=== PATIENT | male | born 1965 | race Caucasian/White ===

== ENCOUNTER 2023-11-14 12:02 | Emergency (ER) | payer BC, SELFPAY ==
--- NOTE | ~2023-11-14 | XR_ITS ---
EXAMINATION: XR chest 2V DATE: 11/14/2023 12:32 INDICATION: Chest tightness TECHNIQUE: PA and lateral views of the chest are obtained. COMPARISON: None available FINDINGS: The lungs are free of acute opacities. No pleural effusion or pneumothorax. The cardiomedia stinal silhouette is normal. There is mild thoracic spondylosis. IMPRESSION: 1. No acute cardiopulmonary abnormality. Reviewed, dictated and finalized at location B. [facility]
[2023-11-14 12:07] VITALS: BP 186/96; PULSE 72; RESP 18; TEMP 36.4; O2SAT 100
--- NOTE | 2023-11-14 12:12 | ECG_ITS ---
Measurements Intervals [place] Rate: 66 P: 58 OR: 133 QRS: 1 QRSD: 94 T: 43 QT: 368 QTc: 387 Interpretive Statements SINUS RHYTHM WITH FREQUENT VENTRICULAR PREMATURE COMPLEXES ABNORMAL RHYTHM ECG NO PREVIOUS ECG AVAILABLE FOR COMPARISON Electronically Signed On 11-14-2023 15:38:43 [employer] by Ravin Harkins M.D.
--- NOTE | 2023-11-14 12:12 | PC.NURSE ---
Pt placed in waiting room and now complaining of chest tightness. CP PG initiated
[2023-11-14 12:36] LABS: Basophils Absolute Auto 0.1 K/mm3 (0.0-0.1); Eosinophils Absolute Auto 0.1 K/mm3 (0-0.3); Eosinophils Percent Auto 1.1 % (0-4.4); Hematocrit 45.4 % (42.0-52.0); Hemoglobin 15.7 g/dL (14.0-18.0); Immature Granulocyte Absolute 0.01 K/mm3 (0.00-0.031); Immature Granulocyte Percent A 0.1 % (0-0.5); Lymphocytes Absolute Auto 1.85 K/mm3 (0.9-3.2); Lymphocytes Percent Auto 25.6 % (18.3-44.2); Mean Corpuscular HGB Conc 34.6 g/dl (32-36); Mean Corpuscular Hemoglobin 30.5 pg (26-34); Mean Corpuscular Volume 88.2 fl (80-100); Mean Platelet Volume 9.9 fl (7.4-10.4); Monocytes Absolute Auto 0.5 K/mm3 (0.1-0.6); Monocytes Percent Auto 7.1 % (2.6-8.5); Neutrophils Absolute Auto 4.7 K/mm3 (1.3-6.7); Neutrophils Percent Auto 65.1 % (45.5-73.1); Platelet Count Result 301 k/mm3 (150-375); Red Blood Count 5.15 M/mm3 (4.6-6.20); Red Cell Distribution Width 12.3 % (11.5-14.5); White Blood Count 7.2 K/mm3 (4.5-10.0)
[2023-11-14 12:39] VITALS: BP 161/95; PULSE 63; RESP 13; O2SAT 99
[2023-11-14 12:44] LABS: INR 0.9
[2023-11-14 12:45] LABS: Partial Thromboplastin Time 24.4 SECONDS (22.3-36.8)
[2023-11-14 12:48] LABS: Alanine Aminotransferase 42 U/L (6-50); Albumin Level 4.8 g/dL (3.5-5.1); Alkaline Phosphatase 85 U/L (38-126); Anion Gap 9 mmol/L (8-16); Aspartate Amino Transferase 41 U/L (17-59); Bilirubin,Total 0.6 mg/dL (0.2-1.3); Blood Urea Nitrogen 18 mg/dL (9-20); Calcium 9.7 mg/dL (8.4-10.2); Carbon Dioxide 26 mmol/L (22-30); Chloride 105 mmol/L (98-107); Estimated CRCL calculation 76 ml/min; Estimated Glomerular Filt Rate > 60; Glucose 112 mg/dL (65-110); Lipase 106 U/L (23-300); Potassium 4.3 mmol/L (3.4-5.0); Sodium 140 mmol/L (137-145)
[2023-11-14] MEDS: ASPIRIN 81 MG CHEWABLE TABLET 324 MG PO (13:00)
[2023-11-14 13:04] LABS: Troponin I < 0.012 ng/mL (0.000-0.034)
[2023-11-14 14:13] VITALS: BP 123/87; PULSE 67; RESP 13; O2SAT 98
--- NOTE | 2023-11-14 15:10 | ED.RECABL ---
HPI - Recheck/Abnormal Lab/Rx General Chief Complaint: Recheck/Abnormal Lab/Rx Stated Complaint: high blood pressure Time Seen by Provider: 11/14/23 12:58 Source: patient Limitations: no limitations History of Present Illness HPI narrative: Patient is a 57-year-old male presents to the emergency department complaining of high blood pressure. Patient states he has been taking his blood pressure with a past couple days and been reading high prompting and come in for further evaluation. Patient notes he has been taking his medications as prescribed without any recent changes. Patient is not following the aha guidelines for obtaining blood pressure readings and has been feeling anxious about this and when to recheck his blood pressure is higher. Patient admits to having follow-up with his primary care physician coming up. Patient denies chest pain, difficulty breathing, hematuria, headache, vision changes, nausea, vomiting, numbness, weakness. Related Data Allergies Allergy/AdvReac Type Severity Reaction Status Date / Time Penicillins Allergy Unknown hives Verified 11/14/23 12:39 Review of Systems Review of Systems: A 10 system review of systems was completed on the patient and is negative except for what is stated in the HPI. Nursing and ancillary documentation was reviewed. [facility] Past Medical History Medical History Essential (primary) hypertension Social History Social History Smoking packs per day: 1 Smoking cigarettes per day: 20.0 Smoking status: Former smoker Tobacco type: cigarettes Alcohol intake: current Drinks per week: 14 Substance use: never Substance use type: does not use Comments At time of signature, I have reviewed and agree with nursing past medical, surgical, social and family history unless otherwise noted. Please see the nursing chart for further information. There is no relevant family history pertinent to the presenting complaint. Exam Narrative: CONST: No acute distress. Well nourished. HENMT: Head is normocephalic and atraumatic. Moist mucous membranes. No posterior oropharynx erythema. EYES: No conjunctival icterus, injection, or pallor. PERRL. NECK: No meningeal signs. RESP: Able to speak in full sentences. Normal respiratory effort. CTAB. CARDIO: Regular rate. Regular rhythm. 2+ DP and radial pulses bilaterally. GI: Nondistended. No tenderness to palpation. Soft. : No CVA tenderness to palpation. SKIN: No rashes or lesions noted on exposed skin. NEURO: Oriented x3. Moves all extremities. EXTREM/MSK/BACK: No pedal edema. PSYCH: Normal affect. Course Vital Signs Vital signs: Vital Signs Temperature 97.6 F 11/14/23 12:07 Pulse Rate 72 11/14/23 12:07 Respiratory Rate 18 11/14/23 12:07 Blood Pressure 186/96 H 11/14/23 12:07 Pulse Oximetry 100 11/14/23 12:07 Temperature 97.6 F 11/14/23 12:07 Pulse Rate 67 11/14/23 14:13 Respiratory Rate 13 11/14/23 14:13 Blood Pressure 123/87 11/14/23 14:13 Pulse Oximetry 98 11/14/23 14:13 MDM - Recheck/Abnormal Lab/Rx MDM Narrative Medical decision making narrative: Patient presents with the above complaint. Initial vitals are remarkable for no significant abnormalities. Physical examination as noted above. Plan discussed: laboratory analysis, EKG, chest x-ray. Patient was reassessed at the bedside. No changes in physical exam. Patient is in no acute distress. The patient has remained stable throughout the entire ED visit. Blood pressure readings are much improved while patient is resting and relaxing with no one in the room. Counseled patient regarding diagnostic results and potential diagnosis. Anticipatory guidance provided. patient provided with a chain guidelines for blood pressure reading at home. Patient instructed to follow up with PCP within 1 week. Rudy
[2023-11-14 15:24] VITALS: BP 130/92; PULSE 66; RESP 16; TEMP 36.3; O2SAT 98
== END 2023-11-14 15:26 | disposition home or self-care (01) ==
PROVIDERS: Emergency Medicine; Emergency Provider Student in an Organized Health Care Education/Training Program; PCP Nurse Practitioner Family
DX: I10 Essential (primary) hypertension (principal); Z87.891 Personal history of nicotine dependence; R94.31 Abnormal electrocardiogram [ECG] [EKG]
CPT/HCPCS: 36415; 71046; 80053; 83690; 84484; 85025; 85610; 85730; 93005; 99284; A9270

== ENCOUNTER 2024-03-17 00:24 | Day surgery (SDC) | payer BC, SELFPAY ==
[2024-03-02 13:47] VITALS: BMI 27.9
[2024-03-17 10:54] VITALS: BP 126/89; PULSE 56; RESP 16; TEMP 36.1; O2SAT 98
[2024-03-17] MEDS: LACTATED RINGERS 1,000 ML 150 ML IV CONT (11:00)
--- NOTE | 2024-03-17 12:14 | PM.HPGS ---
History of Present Illness History of Present Illness Consent: Risks, benefits, and alternatives have been discussed and questions answered. Patient agrees to proceed with procedure. Chief complaint: GERD without esophagitis Narrative: José Antonio Carpenter is a 58 year old male here for first EGD, h/o GERD on omeprazole Review of Systems Review of Systems: All systems reviewed & are unremarkable except as noted in HPI and below PMFSH Past Medical History Medical History Essential (primary) hypertension Social History Social History Smoking packs per day: 1 Smoking cigarettes per day: 20.0 Smoking status: Former smoker Tobacco type: cigarettes Alcohol intake: current Drinks per week: 10 Substance use: never Substance use type: does not use Spiritual care concerns: No Meds Home Medications and Allergies Home Medications Medication Instructions Recorded Confirmed Type rosuvastatin 10 mg tablet See Rx Instructions .Route 10/21/23 03/02/24 Rx .COMPLEX #90 tabs ramipril 10 mg capsule See Rx Instructions .Route 12/04/23 03/02/24 Rx .COMPLEX #180 caps omeprazole 20 mg capsule,delayed 20 mg PO DAILY #90 caps 01/12/24 03/02/24 Rx release hydrochlorothiazide 25 mg tablet 25 mg PO DAILY #90 tabs 01/28/24 03/02/24 Rx Allergies Allergy/AdvReac Type Severity Reaction Status Date / Time Penicillins Allergy Unknown hives Verified 03/17/24 10:51 amlodipine AdvReac Severe Swelling Verified 03/17/24 10:51 nebivolol [From Bystolic] AdvReac Severe Dizziness Verified 03/17/24 10:51 Vital Signs Vital Signs - 24 hr 03/17/24 10:54 Temperature 96.9 F L Pulse Rate 56 L Respiratory Rate 16 Blood Pressure 126/89 Pulse Oximetry 98 Oxygen Delivery Room Air Exam Const: General: comfortable and no acute distress HENMT: Face/Nose/Sinus: Normal nares present Eyes: General: appearance normal, both eyes and all related structures Neck: Neck: no JVD Resp: Auscultation: clear to auscultation bilaterally Cardio: Rate: regular rate Rhythm: regular rhythm GI: Inspection: non-distended GI Palp: Yes Soft to palpation Skin: General skin exam: normal color Neuro: General: gait normal Speech: normal speech Extrem: General: normal to inspection Psych: Mental Status: mental status grossly normal Assessment and Plan Assessment and plan (1) Chronic GERD: Code(s): K21.9 - Gastro-esophageal reflux disease without esophagitis Status: Acute Assessment and Plan: egd with bx on ppi
--- NOTE | 2024-03-17 12:16 | WPDANESEPPF ---
Anes - Initial Pre Proc Eval Procedure: Operation Date: 03/17/24 12:30 Proposed Procedures p Esophagogastroduodenoscopy - Clinton Berman MD Date/Time: 03/17/24 12:16 Surgeon: Clinton Berman MD Pre Op Diagnosis: GERD without esophagitis Patient Data Age: 58 Gender: M Height: 1.8 m Weight: 90.2 kg Last Vital Signs Temp 96.9 F L 03/17/24 10:54 Pulse 56 L 03/17/24 10:54 Resp 16 03/17/24 10:54 BP 126/89 03/17/24 10:54 Pulse Ox 98 03/17/24 10:54 O2 Del Method Room Air 03/17/24 10:54 Allergies Allergy/AdvReac Type Severity Reaction Status Date / Time Penicillins Allergy Unknown hives Verified 03/17/24 10:51 amlodipine AdvReac Severe Swelling Verified 03/17/24 10:51 nebivolol [From Bystolic] AdvReac Severe Dizziness Verified 03/17/24 10:51 Home Medications Medication Instructions Recorded Confirmed Type rosuvastatin 10 mg tablet See Rx Instructions .Route 10/21/23 03/02/24 Rx .COMPLEX #90 tabs ramipril 10 mg capsule See Rx Instructions .Route 12/04/23 03/02/24 Rx .COMPLEX #180 caps omeprazole 20 mg capsule,delayed 20 mg PO DAILY #90 caps 01/12/24 03/02/24 Rx release hydrochlorothiazide 25 mg tablet 25 mg PO DAILY #90 tabs 01/28/24 03/02/24 Rx Patient hx anesthesia problems: none Family hx anesthesia problems: none Results Review: All pre-operative results and documents have been reviewed as part of the pre-operative evaluation. [facility] Past Medical History Medical History Essential (primary) hypertension Social History Social History Smoking packs per day: 1 Smoking cigarettes per day: 20.0 Smoking status: Former smoker Tobacco type: cigarettes Alcohol intake: current Drinks per week: 10 Substance use: never Substance use type: does not use Spiritual care concerns: No Anes - Eval Final PreProcedure Day of Procedure 03/17/24 12:16 Patient weight: normal Heart: regular rate and rhythm Lungs: clear to auscultation Airway: Mallampati scale class II Neurological: alert and oriented Last oral intake: >/= 8 hours ASA classification: III Emergent: no Anesthetic plan: proceed Anesthesia type and monitoring: general GIVS and standard monitoring Results Review: All pre-operative results and documents have been reviewed as part of the pre-operative evaluation. Informed Consent: The patient's anesthetic plan and its attendant risks and benefits were discussed with the patient/family/POA. Questions were solicited and answers provided to the satisfaction of the patient/family/POA.
[2024-03-17 12:29] VITALS: BP 104/78; PULSE 59; RESP 14; O2SAT 94
[2024-03-17 12:39] VITALS: BP 112/61; PULSE 57; RESP 16; O2SAT 96
[2024-03-17 12:49] VITALS: BP 124/79; PULSE 56; RESP 18; O2SAT 98
== END 2024-03-17 12:53 | disposition home or self-care (01) ==
PROVIDERS: PCP Nurse Practitioner Family; Visit Provider Internal Medicine Gastroenterology
PROC: 0DJ08ZZ Inspection of Upper Intestinal Tract, Via Natural or Artificial Opening Endoscopic (ICD-10-PCS; CPT 43235; principal; 2024-03-17 12:30)
DX: K21.00 Gastro-esophageal reflux disease with esophagitis, without bleeding (principal); K31.A19 Gastric intestinal metaplasia without dysplasia, unspecified site; K44.9 Diaphragmatic hernia without obstruction or gangrene; I10 Essential (primary) hypertension; Z87.891 Personal history of nicotine dependence
CPT/HCPCS: 43239; 88305; J2001; J2704; J7120